=== PATIENT | female | born 1985 | race African-American/Black ===

== ENCOUNTER 2017-01-15 22:42 | Emergency (ER) | payer OTHER ==
[~2017-01-15] VITALS: Ht 170.2 cm; Wt 70.3 kg
[~2017-01-15 22:42] MED LIST: FLEXERIL PO; IBUPROFEN 800800 MG PO; NOHOMEMEDICATIONS; NORFLEX100 MG PO; PERCOCET 5-3251 EACH PO; ROBAXIN500 MG PO; ULTRAM 50MG TAB50 MG; ULTRAM 50MG TAB50 MG PO
[2017-01-15 23:35] LABS: ABSOLUTE NEUTROPHILS 5.7 thou/uL (1.4-8.2); BASOPHILS 0.8 % (0.0-2.0); EOSINOPHILS 1.6 % (0.0-3.0); HEMATOCRIT 40.6 % (37.0-47.0); HEMOGLOBIN 13.7 gm/dL (12.0-15.0); LYMPHOCYTES 19.4 % (24.0-44.0); MCH 30.5 pg (26.0-34.0); MCHC 33.7 g/dL (28.0-37.0); MCV 90.5 fL (80.0-100.0); MONOCYTES 10.5 % (1.0-8.0); PLATELET COUNT 223 thou/uL (150-400); POLYS 67.7 % (36.0-66.0); RBC 4.49 mil/uL (4.20-5.00); RDW 13.6 % (10.5-14.5); WBC 8.4 thou/uL (4.0-11.0)
[2017-01-15 23:40] LABS: MANUAL DIFF NO
[2017-01-15 23:52] LABS: CALCIUM 8.7 mg/dL (8.5-10.1); CREATININE 0.6 mg/dL (0.6-1.0); POTASSIUM 3.4 mmol/L (3.5-5.1)
[2017-01-16 00:39] LABS: ESR (SEDRATE) 12 mm/hr (0-20)
[2017-01-16] MEDS ORDERED: CLEOCIN HCL150 MG PO (01:15)
[2017-01-16] MEDS ORDERED: NORCO 5-325 TA1 EACH PO (01:15)
[2017-01-16 02:02] VITALS: BP 108/62
== END 2017-01-16 02:04 | disposition home or self-care (01) ==
LOC: ER 22:42
PROVIDERS: Emergency Medicine
DX: S61.210A Laceration without foreign body of right index finger without damage to nail, initial encounter (principal); F10.99 Alcohol use, unspecified with unspecified alcohol-induced disorder; Z88.8 Allergy status to other drugs, medicaments and biological substances; Z91.041 Radiographic dye allergy status; W26.0XXA Contact with knife, initial encounter; Y93.89 Activity, other specified; Y92.89 Other specified places as the place of occurrence of the external cause; Y99.8 Other external cause status